=== PATIENT | female | born 1955 | race Caucasian/White ===

== ENCOUNTER 2016-11-30 03:33 | Emergency (ER) | payer OTHER ==
[~2016-11-30] VITALS: Ht 162.6 cm; Wt 47.1 kg
[~2016-11-30 03:33] MED LIST: ANIMAL CHEWS1 EACH PO; CALCIUM 600 +1 EAC7 PO; CALICUM 500+D1 EACH PO; DAILY VITE1 EAC1 PO; DOXEPIN HCL50 MG PO; GABAPENTIN600 MG PO; GRALISE600 MG PO; KEPPRA1000 MG PO; LEVOTHYROXINE50 MCG PO; LORAZEPAM1 MG PO; MIRTAZAPINE15 MG PO; NAMENDA XR14 MG PO; SERTRALINE HCL100 MG PO; SINEQUAN50 MG PO; TYLENOL REGULA325 MG PO; VIMPAT50 MG PO; ZOLOFT100 MG PO
[2016-11-30 06:31] VITALS: BP 91/80
== END 2016-11-30 06:33 ==
LOC: EME 03:33
DX: I95.9 Hypotension, unspecified (principal); G30.9 Alzheimer's disease, unspecified; F02.80 Dementia in other diseases classified elsewhere, unspecified severity, without behavioral disturbance, psychotic disturbance, mood disturbance, and anxiety; E03.9 Hypothyroidism, unspecified; Z66 Do not resuscitate; Z99.81 Dependence on supplemental oxygen
CPT/HCPCS: 99281; 99284